=== PATIENT | female | born 1955 | race Caucasian/White ===

== ENCOUNTER 2018-11-08 02:58 | Observation (INO) ==
--- NOTE | 2018-11-08 03:22 | Emergency Department Note ---
Disposition Clinical Impression: Cough, Nausea, Elevated troponin Back pain Qualifiers: Back pain location: low back pain Chronicity: acute Back pain laterality: left Sciatica presence: without sciatica Qualified Code(s): M54.5 - Low back pain Chronic renal insufficiency Qualifiers: Chronic kidney disease stage: unspecified stage Qualified Code(s): N18.9 - Chronic kidney disease, unspecified Fever Qualifiers: Fever type: unspecified Qualified Code(s): R50.9 - Fever, unspecified Disposition: Admitted As Inpatient Condition: Good Referrals: [facility] [Outside] [facility] [Outside] Time of Disposition: 07:09 General Adult HPI - General Stated complaint: Nausea/Cough/MCDOWELL Time Seen by Provider: 11/08/18 03:04 Source: patient Mode of arrival: private vehicle Limitations: no limitations Nursing Notes Reviewed: Yes Vital Signs Reviewed: Yes - History of Present Illness HPI Narrative: 62-year-old female with a past medical history of pulmonary hypertension, diabetes who reports worsening cough, nausea, headache that started Thursday bhupendra borden. Patient states that she did not feel well so did not take her evening medications which include a Lantus shot. She states that when she woke up at 2 AM she felt very warm and so took her temperature and it was 104, she took it again 20 minutes later and it was 104.4 so she asked her to take her to the emergency department. Patient reports spending a lot of time in the ICU over the last week with her sister who is there for unknown reasons. Patient reports that her sister started with very similar complaints of cough headache and nausea and is now in a medically induced coma. Patient states she is not bringing anything up with her cough, but states that she is very bad habit of not bringing up anything with her cough. She reports some chest pain with coughing. States she was not really able to eat anything yesterday because of the nausea. Reports some leg weakness starting yesterday. And a headache that she states is posterior in nature. 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 She uses 3 L of oxygen by nasal cannula at home as her baseline. Pain Scale: 4 - Related Data Home Medications Medication Instructions Recorded Confirmed Albuterol Sulfate [Proair Hfa] 2 puff IH Q4H PRN 12/15/16 12/15/16 Amlodipine Besylate 5 mg PO DAILY 12/15/16 12/15/16 Aspirin [Lo-Dose Aspirin EC] 81 mg PO DAILY 12/15/16 12/15/16 Budesonide/Formoterol 160/4.5 2 puff IH BIDR 12/15/16 12/15/16 [Symbicort 160/4.5] Carvedilol [Coreg] 12.5 mg PO BID 12/15/16 12/15/16 Cyanocobalamin (Vitamin B-12) 100 mcg PO DAILY 12/15/16 12/15/16 [Vitamin B12] Doxepin HCl 100 mg PO DAILY 12/15/16 12/15/16 Ergocalciferol (VITAMIN D2) 50,000 unit PO QWEEK 12/15/16 12/15/16 [Vitamin D2] Furosemide [Lasix] 20 mg PO DAILY 12/15/16 12/15/16 HYDROcodone/Acet 10/325 mg [[place] 1 tab PO Q6HR PRN 12/15/16 12/15/16 10-325 mg] Insulin ASPART [Novolog Flexpen] 8 unit SQ TIDAC 12/15/16 12/15/16 Insulin Glargine,Hum.rec.anlog 14 unit SQ HS 12/15/16 12/15/16 [Lantus Solostar] Lactobacillus Acidophilus 1 each PO BID 12/15/16 12/15/16 [Acidophilus] Lisinopril [Zestril] 20 mg PO DAILY 12/15/16 12/15/16 Macitentan [Opsumit] 10 mg PO DAILY 12/15/16 12/15/16 Magnesium Oxide [Magnesium] 400 mg PO DAILY 12/15/16 12/15/16 [place]-3/Dha/Epa/Fish Oil [Fish Oil 1 each PO TID 12/15/16 12/15/16 1,000 mg Softgel] Omeprazole [PriLOSEC] 20 mg PO BIDAC 12/15/16 12/15/16 Potassium Chloride [K-Tab ER] 20 meq PO DAILY 12/15/16 12/15/16 Sildenafil Citrate [Revatio] 20 mg PO TID 12/15/16 12/15/16 Simvastatin [Zocor] 40 mg PO HS 12/15/16 12/15/16 Sucralfate [Carafate] 1 gm PO 0730,1630 12/15/16 12/15/16 Venlafaxine HCl [Venlafaxine HCl 150 mg PO DAILY 12/15/16 12/15/16 ER] clonazePAM [Clonazepam] 0.5 mg PO TID 12/15/16 12/15/16 Allergies Allergy/AdvReac Type Severity Reaction Status Date / Time Cyclobenzaprine Allergy Hallucinati Verified 12/15/16 06:52 [From Flexeril] ng promethazine [From Phenergan] Allergy Hallucinati Verified 12/15/16 06:52 ng Sulfa (Sulfonamide Allergy Rash Verified 12/15/16 06:52 Antibiotics) Tamoxifen Allergy See Verified 12/15/16 06:52 Comments Review of Systems: All systems ED: reviewed and negative except as stated. Constitutional: Reports: fever, chills ENT ED: Denies: ear pain, throat pain Reports: rhinorrhea Cardiovascular: Denies: palpitations Reports: chest pain with coughing Respiratory: Reports: cough, dyspnea Gastrointestinal: Denies: abdominal pain, vomiting, diarrhea, constipation R eports: nausea Genitourinary: Denies: urgency, dysuria, Reports: frequency Musculoskeletal: Denies: neck pain Reports: back pain Integumentary: Denies: rash, abrasion Neurological: Denies: weakness, numbness, paresthesias Reports: headache Psychiatric: Denies: anxiety, depression Endocrine: Denies: fatigue, heat or cold intolerance Hematological/Lymphatic: Denies: easy bleeding, easy bruising Allergic/Immunologic: Denies: facial swelling, urticaria Past Medical History - Past Medical History Medical history: Reports: asthma, cancer, cardiomyopathy, CHF, coronary artery disease, diabetes, fibromyalgia, hyperlipidemia, hypertension, renal disease Surgical history: Reports: cholecystectomy Psychiatric history: Reports: anxiety, depression - Social History Smoking Status: Never smoker Smokeless Tobacco Status: No Alcohol use: Reports: none Physical Exam General: A&O x 3. No acute distress. Well developed, well nourished. Head: atraumatic, normocephalic. ENT: No conjunctival injection, no scleral icterus. PERRLA. EOMI. Oropharynx no n- erythematous. mucous membranes moist. Neuro: No focal deficits, no speech deficit, no facial droop, mentating well. BUE/BLE Str 5/5. Pulm: Lungs CTAB A/P. No wheezes, rales, ronchi. Cardio: RRR no m/r/g. Chest not tender to palpation. Abd: Soft, non-distended. Normoactive bowel sounds. Non-tender to palpation. No guarding. Non rigid. Back: Tender to palpation in paraspinal tissues at L2-L3 on left. No CVA tenderness on either side. Extremities: Radial pulses 2+ mark, dorsalis pedis/posterior tibialis 1+ mark. No LE edema. No cyanosis, clubbing. Skin: warm, dry, intact. No rashes. Psych: Appropriate mood and affect. Answers questions appropriately. Cooperative with exam. - General Limitations: no limitations General appearance: alert, in no apparent distress Course Course Narrative: Ddx includes but is not limited to: PNA, ACS, DKA/HHS, Workup: CBC, BMP, troponin, beta-hydroxybutyrate, EKG, CXR, fingerstick glucose. Pt is denying needs at this time for anti-emetics/pain control. Vital Signs Temperature 98.9 F 11/08/18 03:02 Pulse Rate 102 11/08/18 03:02 Respiratory Rate 16 11/08/18 03:02 Blood Pressure 150/105 11/08/18 03:02 O2 Sat by Pulse Oximetry 94 11/08/18 03:02 Temperature 99.1 F 11/08/18 06:58 Pulse Rate 86 11/08/18 06:58 Respiratory Rate 20 11/08/18 06:58 Blood Pressure 145/99 11/08/18 06:58 O2 Sat by Pulse Oximetry 94 11/08/18 06:58 Oxygen Delivery Oxygen Delivery Nasal Cannula Medical Decision Making - MDM Narrative Medical decision making narrative: Pt was signed out to dayshift team, see Dr. Whiteside's notes for full results of workup and disposition. - Medical Records Medical records reviewed: Yes I reviewed the patient's medical records. - Lab Data Lab results reviewed: Yes I reviewed the patient's lab results. Result diagrams: 11/08/18 03:42 11/08/18 03:42 Lab Results 11/08/18 11/08/18 11/08/18 Range/Units 03:42 03:42 03:42 WBC 9.8 (4.3-11.1) K/mcL RBC 5.74 H (3.82-4.97) M/mcL Hgb 17.5 H (11.5-15.4) g/dL Hct 52.5 H (35.3-44.9) % MCV 91.5 (83.0-100.0) fL MCH 30.5 (28.0-33.3) pg MCHC 33.3 (31.6-35.5) g/dL RDW 14.3 (11.5-14.5) % Plt Count 168 (140-400) K/mcL MPV 12.6 H (9.4-12.4) fL Immature Gran % 0.4 (0-4) % Seg Neutrophils % 73.9 % Lymphocytes % 12.9 % Monocytes % 11.9 % Eosinophils % 0.3 % Basophils % 0.6 % Neutrophils # 7.2 (1.6-8.9) K/mcL Lymphocytes # 1.3 (0.6-4.6) K/mcL Monocytes # 1.2 (0.0-1.3) K/mcL Eosinophils # 0.0 (0.0-0.6) K/mcL Basophils # 0.1 (0.0-0.2) K/mcL Sodium 137 (136-145) mEq/L Potassium 3.2 L (3.5-5.1) mEq/L Chloride 98 (98-107) mEq/L Carbon Dioxide 25 (23-29) mEq/L BUN 26 H (8-23) mg/dL Creatinine 1.49 H (0.60-1.20) mg/dL Est GFR ( Amer) 43 L (> 60) Est GFR (Non-Af Amer) 35 L (> 60) BUN/Creatinine Ratio 17 (6-26) Glucose 178 H (70-105) mg/dL POC Glucose (70-99) mg/dL Calculated Osmolality 293 (280-300) Lactic Acid (0.5-2.2) mmol/L Calcium 10.0 (8.6-10.3) mg/dL Total Bilirubin 1.7 H (0.3-1.0) mg/dL Direct Bilirubin 0.3 H (0.0-0.2) mg/dL Indirect Bilirubin 1.4 H (0.0-1.2) mg/dL AST 28 (13-39) Units/L ALT 27 (7-52) Units/L Alkaline Phosphatase 125 H (34-104) Units/L Troponin I (< 0.04) ng/mL Serum Total Protein 8.3 (6.4-8.9) g/dL Albumin 4.7 (3.5-5.7) g/dL Globulin 3.6 H (2.4-3.5) g/dL Albumin/Globulin Ratio 1.3 (1.1-2.2) Beta-Hydroxybutyric Acd 0.54 H (0.02-0.27) mmol/L Urine Color (Yellow) Urine Clarity (Clear) Urine pH (5.0-8.0) pH Units Ur Specific [place] (1.010-1.025) Urine Protein (Neg-Trace) mg/dL Urine Glucose (UA) (Normal) mg/dL Urine Ketones (Negative) mg/dL Urine Blood (Negative) Urine Nitrite (Negative) Urine Bilirubin (Negative) Urine Urobilinogen (Normal) mg/dL Ur Leukocyte Esterase (Negative) Urine Microscopic RBC (0-3) per hpf Urine Microscopic WBC (0-3) per hpf Ur Squamous Epith Cells (None-Few) per lpf Urine Bacteria (None-Few) per hpf Ur Culture Indicated? (NO) 11/08/18 11/08/18 11/08/18 Range/Units 03:42 03:42 04:20 WBC (4.3-11.1) K/mcL RBC (3.82-4.97) M/mcL Hgb (11.5-15.4) g/dL Hct (35.3-44.9) % MCV (83.0-100.0) fL MCH (28.0-33.3) pg MCHC (31.6-35.5) g/dL RDW (11.5-14.5) % Plt Count (140-400) K/mcL MPV (9.4-12.4) fL Immature Gran % (0-4) % Seg Neutrophils % % Lymphocytes % % Monocytes % % Eosinophils % % Basophils % % Neutrophils # (1.6-8.9) K/mcL Lymphocytes # (0.6-4.6) K/mcL Monocytes # (0.0-1.3) K/mcL Eosinophils # (0.0-0.6) K/mcL Basophils # (0.0-0.2) K/mcL Sodium (136-145) mEq/L Potassium (3.5-5.1) mEq/L Chloride (98-107) mEq/L Carbon Dioxide (23-29) mEq/L BUN (8-23) mg/dL Creatinine (0.60-1.20) mg/dL Est GFR ( Amer) (> 60) Est GFR (Non-Af Amer) (> 60) BUN/Creatinine Ratio (6-26) Glucose (70-105) mg/dL POC Glucose 143 H (70-99) mg/dL Calculated Osmolality (280-300) Lactic Acid 1.5 (0.5-2.2) mmol/L Calcium (8.6-10.3) mg/dL Total Bilirubin (0.3-1.0) mg/dL Direct Bilirubin (0.0-0.2) mg/dL Indirect Bilirubin (0.0-1.2) mg/dL AST (13-39) Units/L ALT (7-52) Units/L Alkaline Phosphatase (34-104) Units/L Troponin I 0.04 H* (< 0.04) ng/mL Serum Total Protein (6.4-8.9) g/dL Albumin (3.5-5.7) g/dL Globulin (2.4-3.5) g/dL Albumin/Globulin Ratio (1.1-2.2) Beta-Hydroxybutyric Acd (0.02-0.27) mmol/L Urine Color (Yellow) Urine Clarity (Clear) Urine pH (5.0-8.0) pH Units Ur Specific [place] (1.010-1.025) Urine Protein (Neg-Trace) mg/dL Urine Glucose (UA) (Normal) mg/dL Urine Ketones (Negative) mg/dL Urine Blood (Negative) Urine Nitrite (Negative) Urine Bilirubin (Negative) Urine Urobilinogen (Normal) mg/dL Ur Leukocyte Esterase (Negative) Urine Microscopic RBC (0-3) per hpf Urine Microscopic WBC (0-3) per hpf Ur Squamous Epith Cells (None-Few) per lpf Urine Bacteria (None-Few) per hpf Ur Culture Indicated? (NO) 11/08/18 Range/Units 05:54 WBC (4.3-11.1) K/mcL RBC (3.82-4.97) M/mcL Hgb (11.5-15.4) g/dL Hct (35.3-44.9) % MCV (83.0-100.0) fL MCH (28.0-33.3) pg MCHC (31.6-35.5) g/dL RDW (11.5-14.5) % Plt Count (140-400) K/mcL MPV (9.4-12.4) fL Immature Gran % (0-4) % Seg Neutrophils % % Lymphocytes % % Monocytes % % Eosinophils % % Basophils % % Neutrophils # (1.6-8.9) K/mcL Lymphocytes # (0.6-4.6) K/mcL Monocytes # (0.0-1.3) K/mcL Eosinophils # (0.0-0.6) K/mcL Basophils # (0.0-0.2) K/mcL Sodium (136-145) mEq/L Potassium (3.5-5.1) mEq/L Chloride (98-107) mEq/L Carbon Dioxide (23-29) mEq/L BUN (8-23) mg/dL Creatinine (0.60-1.20) mg/dL Est GFR ( Amer) (> 60) Est GFR (Non-Af Amer) (> 60) BUN/Creatinine Ratio (6-26) Glucose (70-105) mg/dL POC Glucose (70-99) mg/dL Calculated Osmolality (280-300) Lactic Acid (0.5-2.2) mmol/L Calcium (8.6-10.3) mg/dL Total Bilirubin (0.3-1.0) mg/dL Direct Bilirubin (0.0-0.2) mg/dL Indirect Bilirubin (0.0-1.2) mg/dL AST (13-39) Units/L ALT (7-52) Units/L Alkaline Phosphatase (34-104) Units/L Troponin I (< 0.04) ng/mL Serum Total Protein (6.4-8.9) g/dL Albumin (3.5-5.7) g/dL Globulin (2.4-3.5) g/dL Albumin/Globulin Ratio (1.1-2.2) Beta-Hydroxybutyric Acd (0.02-0.27) mmol/L Urine Color Yellow (Yellow) Urine Clarity Cloudy A (Clear) Urine pH 5.5 (5.0-8.0) pH Units Ur Specific [place] 1.022 (1.010-1.025) Urine Protein >=300 H (Neg-Trace) mg/dL Urine Glucose (UA) Normal (Normal) mg/dL Urine Ketones Negative (Negative) mg/dL Urine Blood Negative (Negative) Urine Nitrite Negative (Negative) Urine Bilirubin Negative (Negative) Urine Urobilinogen Normal (Normal) mg/dL Ur Leukocyte Esterase Negative (Negative) Urine Microscopic RBC 0-3 (0-3) per hpf Urine Microscopic WBC 3-5 H (0-3) per hpf Ur Squamous Epith Cells Many H (None-Few) per lpf Urine Bacteria None Seen (None-Few) per hpf Ur Culture Indicated? NO (NO) - Radiology Data Radiology results reviewed: Yes I reviewed the patient's radiology results. Chest X-Ray 11/08/18 03:22 IMPRESSION: No acute cardiopulmonary process. D/ / Luis Enrique Duvall MD / Luis Enrique Duvall MD Interpreting Provider: Luis Enrique Duvall MD Abdomen/Pelvis CT 11/08/18 04:36 IMPRESSION: 1. Small pericardial effusion, slightly increased from prior exam. 2. No acute process in the abdomen or pelvis. 3. Status post cholecystectomy. 4. Moderate stool throughout the colon. D/ / Luis Enrique Duvall MD / Luis Enrique Duvall MD Interpreting Provider: Luis Enrique Duvall MD Chest CT 11/08/18 04:36 IMPRESSION: 1. Small pericardial effusion, slightly increased from prior exam. 2. No acute process in the abdomen or pelvis. 3. Status post cholecystectomy. 4. Moderate stool throughout the colon. D/ / Luis Enrique Duvall MD / Luis Enrique Duvall MD Interpreting Provider: Luis Enrique Duvall MD - EKG Data EKG #1 EKG attestation: Yes I reviewed and interpreted this EKG. EKG results narrative: Heart rate 96, rhythm sinus, axis right at 195. [place] 164, QRS 145 and prolonged, QTC [address] prolonged[address] 2mm isolated ST elevation in V2, 1mm ST elevation in V1, V3. No ST depression. LVH. When compared to previous study, morphology of aVR , I, II, III, aVL, V6 is different. Comparison study dated 09/05/16.
[2018-11-08 03:55] LABS: Basophils # 0.1 K/mcL (0.0-0.2); Basophils % 0.6 %; Eosinophils % 0.3 %; Hematocrit 52.5 % (35.3-44.9); Hemoglobin 17.5 g/dL (11.5-15.4); Immature Granulocytes % 0.4 % (0-4); Lymphocytes # 1.3 K/mcL (0.6-4.6); Lymphocytes % 12.9 %; Mean Corpuscular HGB Conc 33.3 g/dL (31.6-35.5); Mean Corpuscular Hemoglobin 30.5 pg (28.0-33.3); Mean Corpuscular Volume 91.5 fL (83.0-100.0); Mean Platelet Volume 12.6 fL (9.4-12.4); Monocytes # 1.2 K/mcL (0.0-1.3); Monocytes % 11.9 %; Neutrophils # 7.2 K/mcL (1.6-8.9); Platelet Count 168 K/mcL (140-400); Red Blood Count 5.74 M/mcL (3.82-4.97); Red Cell Distribution Width 14.3 % (11.5-14.5); Segmented Neutrophils % 73.9 %
[2018-11-08 04:14] LABS: Albumin 4.7 g/dL (3.5-5.7); Albumin/Globulin Ratio 1.3 (1.1-2.2); Bilirubin,Direct 0.3 mg/dL (0.0-0.2); Bilirubin,Indirect 1.4 mg/dL (0.0-1.2); Bilirubin,Total 1.7 mg/dL (0.3-1.0); Globulin 3.6 g/dL (2.4-3.5); Potassium 3.2 mEq/L (3.5-5.1); Total Protein 8.3 g/dL (6.4-8.9)
[2018-11-08] MEDS ORDERED: 0.9 % Sodium Chloride 500 ML IVC ONE (05:42)
--- NOTE | 2018-11-08 05:44 | Emergency Department Note ---
Disposition Clinical Impression: Cough, Nausea, Elevated troponin Back pain Qualifiers: Back pain location: low back pain Chronicity: acute Back pain laterality: left Sciatica presence: without sciatica Qualified Code(s): M54.5 - Low back pain Chronic renal insufficiency Qualifiers: Chronic kidney disease stage: unspecified stage Qualified Code(s): N18.9 - Chronic kidney disease, unspecified Fever Qualifiers: Fever type: unspecified Qualified Code(s): R50.9 - Fever, unspecified Disposition: Admitted As Inpatient Condition: Good Referrals: [place] [facility] [Outside] [facility] [Outside] General Adult HPI - General Chief complaint: ED General Medical Stated complaint: Nausea/Cough/MCDOWELL Time Seen by Provider: 11/08/18 03:04 Source: patient Mode of arrival: private vehicle Limitations: no limitations Nursing Notes Reviewed: Yes Vital Signs Reviewed: Yes - History of Present Illness Pain Scale: 4 - Related Data Home Medications Medication Instructions Recorded Confirmed Albuterol Sulfate [Proair Hfa] 2 puff IH Q4H PRN 12/15/16 12/15/16 Amlodipine Besylate 5 mg PO DAILY 12/15/16 12/15/16 Aspirin [Lo-Dose Aspirin EC] 81 mg PO DAILY 12/15/16 12/15/16 Budesonide/Formoterol 160/4.5 2 puff IH BIDR 12/15/16 12/15/16 [Symbicort 160/4.5] Carvedilol [Coreg] 12.5 mg PO BID 12/15/16 12/15/16 Cyanocobalamin (Vitamin B-12) 100 mcg PO DAILY 12/15/16 12/15/16 [Vitamin B12] Doxepin HCl 100 mg PO DAILY 12/15/16 12/15/16 Ergocalciferol (VITAMIN D2) 50,000 unit PO QWEEK 12/15/16 12/15/16 [Vitamin D2] Furosemide [Lasix] 20 mg PO DAILY 12/15/16 12/15/16 HYDROcodone/Acet 10/325 mg [[place] 1 tab PO Q6HR PRN 12/15/16 12/15/16 10-325 mg] Insulin ASPART [Novolog Flexpen] 8 unit SQ TIDAC 12/15/16 12/15/16 Insulin Glargine,Hum.rec.anlog 14 unit SQ HS 12/15/16 12/15/16 [Lantus Solostar] Lactobacillus Acidophilus 1 each PO BID 12/15/16 12/15/16 [Acidophilus] Lisinopril [Zestril] 20 mg PO DAILY 12/15/16 12/15/16 Macitentan [Opsumit] 10 mg PO DAILY 12/15/16 12/15/16 Magnesium Oxide [Magnesium] 400 mg PO DAILY 12/15/16 12/15/16 [place]-3/Dha/Epa/Fish Oil [Fish Oil 1 each PO TID 12/15/16 12/15/16 1,000 mg Softgel] Omeprazole [PriLOSEC] 20 mg PO BIDAC 12/15/16 12/15/16 Potassium Chloride [K-Tab ER] 20 meq PO DAILY 12/15/16 12/15/16 Sildenafil Citrate [Revatio] 20 mg PO TID 12/15/16 12/15/16 Simvastatin [Zocor] 40 mg PO HS 12/15/16 12/15/16 Sucralfate [Carafate] 1 gm PO 0730,1630 12/15/16 12/15/16 Venlafaxine HCl [Venlafaxine HCl 150 mg PO DAILY 12/15/16 12/15/16 ER] clonazePAM [Clonazepam] 0.5 mg PO TID 12/15/16 12/15/16 Allergies Allergy/AdvReac Type Severity Reaction Status Date / Time Cyclobenzaprine Allergy Hallucinati Verified 12/15/16 06:52 [From Flexeril] ng promethazine [From Phenergan] Allergy Hallucinati Verified 12/15/16 06:52 ng Sulfa (Sulfonamide Allergy Rash Verified 12/15/16 06:52 Antibiotics) Tamoxifen Allergy See Verified 12/15/16 06:52 Comments Past Medical History - Past Medical History Medical history: Reports: asthma, cancer, cardiomyopathy, CHF, coronary artery disease, diabetes, fibromyalgia, hyperlipidemia, hypertension, renal disease Surgical history: Reports: cholecystectomy Psychiatric history: Reports: anxiety, depression - Social History Smoking Status: Never smoker Smokeless Tobacco Status: No Alcohol use: Reports: none Physical Exam - General Limitations: no limitations General appearance: alert, in no apparent distress Course Vital Signs Temperature 98.9 F 11/08/18 03:02 Pulse Rate 102 11/08/18 03:02 Respiratory Rate 16 11/08/18 03:02 Blood Pressure 150/105 11/08/18 03:02 O2 Sat by Pulse Oximetry 94 11/08/18 03:02 Temperature 99.1 F 11/08/18 06:58 Pulse Rate 86 11/08/18 06:58 Respiratory Rate 20 11/08/18 06:58 Blood Pressure 145/99 11/08/18 06:58 O2 Sat by Pulse Oximetry 94 11/08/18 06:58 Oxygen Delivery Oxygen Delivery Nasal Cannula Medical Decision Making - Medical Records Medical records reviewed: Yes I reviewed the patient's medical records. - Lab Data Lab results reviewed: Yes I reviewed the patient's lab results. Result diagrams: 11/08/18 03:42 11/08/18 03:42 Lab Results 11/08/18 11/08/18 11/08/18 Range/Units 03:42 03:42 03:42 WBC 9.8 (4.3-11.1) K/mcL RBC 5.74 H (3.82-4.97) M/mcL Hgb 17.5 H (11.5-15.4) g/dL Hct 52.5 H (35.3-44.9) % MCV 91.5 (83.0-100.0) fL MCH 30.5 (28.0-33.3) pg MCHC 33.3 (31.6-35.5) g/dL RDW 14.3 (11.5-14.5) % Plt Count 168 (140-400) K/mcL MPV 12.6 H (9.4-12.4) fL Immature Gran % 0.4 (0-4) % Seg Neutrophils % 73.9 % Lymphocytes % 12.9 % Monocytes % 11.9 % Eosinophils % 0.3 % Basophils % 0.6 % Neutrophils # 7.2 (1.6-8.9) K/mcL Lymphocytes # 1.3 (0.6-4.6) K/mcL Monocytes # 1.2 (0.0-1.3) K/mcL Eosinophils # 0.0 (0.0-0.6) K/mcL Basophils # 0.1 (0.0-0.2) K/mcL Sodium 137 (136-145) mEq/L Potassium 3.2 L (3.5-5.1) mEq/L Chloride 98 (98-107) mEq/L Carbon Dioxide 25 (23-29) mEq/L BUN 26 H (8-23) mg/dL Creatinine 1.49 H (0.60-1.20) mg/dL Est GFR ( Amer) 43 L (> 60) Est GFR (Non-Af Amer) 35 L (> 60) BUN/Creatinine Ratio 17 (6-26) Glucose 178 H (70-105) mg/dL POC Glucose (70-99) mg/dL Calculated Osmolality 293 (280-300) Lactic Acid (0.5-2.2) mmol/L Calcium 10.0 (8.6-10.3) mg/dL Total Bilirubin 1.7 H (0.3-1.0) mg/dL Direct Bilirubin 0.3 H (0.0-0.2) mg/dL Indirect Bilirubin 1.4 H (0.0-1.2) mg/dL AST 28 (13-39) Units/L ALT 27 (7-52) Units/L Alkaline Phosphatase 125 H (34-104) Units/L Troponin I (< 0.04) ng/mL Serum Total Protein 8.3 (6.4-8.9) g/dL Albumin 4.7 (3.5-5.7) g/dL Globulin 3.6 H (2.4-3.5) g/dL Albumin/Globulin Ratio 1.3 (1.1-2.2) Beta-Hydroxybutyric Acd 0.54 H (0.02-0.27) mmol/L Urine Color (Yellow) Urine Clarity (Clear) Urine pH (5.0-8.0) pH Units Ur Specific [place] (1.010-1.025) Urine Protein (Neg-Trace) mg/dL Urine Glucose (UA) (Normal) mg/dL Urine Ketones (Negative) mg/dL Urine Blood (Negative) Urine Nitrite (Negative) Urine Bilirubin (Negative) Urine Urobilinogen (Normal) mg/dL Ur Leukocyte Esterase (Negative) Urine Microscopic RBC (0-3) per hpf Urine Microscopic WBC (0-3) per hpf Ur Squamous Epith Cells (None-Few) per lpf Urine Bacteria (None-Few) per hpf Ur Culture Indicated? (NO) 11/08/18 11/08/18 11/08/18 Range/Units 03:42 03:42 04:20 WBC (4.3-11.1) K/mcL RBC (3.82-4.97) M/mcL Hgb (11.5-15.4) g/dL Hct (35.3-44.9) % MCV (83.0-100.0) fL MCH (28.0-33.3) pg MCHC (31.6-35.5) g/dL RDW (11.5-14.5) % Plt Count (140-400) K/mcL MPV (9.4-12.4) fL Immature Gran % (0-4) % Seg Neutrophils % % Lymphocytes % % Monocytes % % Eosinophils % % Basophils % % Neutrophils # (1.6-8.9) K/mcL Lymphocytes # (0.6-4.6) K/mcL Monocytes # (0.0-1.3) K/mcL Eosinophils # (0.0-0.6) K/mcL Basophils # (0.0-0.2) K/mcL Sodium (136-145) mEq/L Potassium (3.5-5.1) mEq/L Chloride (98-107) mEq/L Carbon Dioxide (23-29) mEq/L BUN (8-23) mg/dL Creatinine (0.60-1.20) mg/dL Est GFR ( Amer) (> 60) Est GFR (Non-Af Amer) (> 60) BUN/Creatinine Ratio (6-26) Glucose (70-105) mg/dL POC Glucose 143 H (70-99) mg/dL Calculated Osmolality (280-300) Lactic Acid 1.5 (0.5-2.2) mmol/L Calcium (8.6-10.3) mg/dL Total Bilirubin (0.3-1.0) mg/dL Direct Bilirubin (0.0-0.2) mg/dL Indirect Bilirubin (0.0-1.2) mg/dL AST (13-39) Units/L ALT (7-52) Units/L Alkaline Phosphatase (34-104) Units/L Troponin I 0.04 H* (< 0.04) ng/mL Serum Total Protein (6.4-8.9) g/dL Albumin (3.5-5.7) g/dL Globulin (2.4-3.5) g/dL Albumin/Globulin Ratio (1.1-2.2) Beta-Hydroxybutyric Acd (0.02-0.27) mmol/L Urine Color (Yellow) Urine Clarity (Clear) Urine pH (5.0-8.0) pH Units Ur Specific [place] (1.010-1.025) Urine Protein (Neg-Trace) mg/dL Urine Glucose (UA) (Normal) mg/dL Urine Ketones (Negative) mg/dL Urine Blood (Negative) Urine Nitrite (Negative) Urine Bilirubin (Negative) Urine Urobilinogen (Normal) mg/dL Ur Leukocyte Esterase (Negative) Urine Microscopic RBC (0-3) per hpf Urine Microscopic WBC (0-3) per hpf Ur Squamous Epith Cells (None-Few) per lpf Urine Bacteria (None-Few) per hpf Ur Culture Indicated? (NO) 11/08/18 11/08/18 Range/Units 05:54 06:45 WBC (4.3-11.1) K/mcL RBC (3.82-4.97) M/mcL Hgb (11.5-15.4) g/dL Hct (35.3-44.9) % MCV (83.0-100.0) fL MCH (28.0-33.3) pg MCHC (31.6-35.5) g/dL RDW (11.5-14.5) % Plt Count (140-400) K/mcL MPV (9.4-12.4) fL Immature Gran % (0-4) % Seg Neutrophils % % Lymphocytes % % Monocytes % % Eosinophils % % Basophils % % Neutrophils # (1.6-8.9) K/mcL Lymphocytes # (0.6-4.6) K/mcL Monocytes # (0.0-1.3) K/mcL Eosinophils # (0.0-0.6) K/mcL Basophils # (0.0-0.2) K/mcL Sodium (136-145) mEq/L Potassium (3.5-5.1) mEq/L Chloride (98-107) mEq/L Carbon Dioxide (23-29) mEq/L BUN (8-23) mg/dL Creatinine (0.60-1.20) mg/dL Est GFR ( Amer) (> 60) Est GFR (Non-Af Amer) (> 60) BUN/Creatinine Ratio (6-26) Glucose (70-105) mg/dL POC Glucose (70-99) mg/dL Calculated Osmolality (280-300) Lactic Acid (0.5-2.2) mmol/L Calcium (8.6-10.3) mg/dL Total Bilirubin (0.3-1.0) mg/dL Direct Bilirubin (0.0-0.2) mg/dL Indirect Bilirubin (0.0-1.2) mg/dL AST (13-39) Units/L ALT (7-52) Units/L Alkaline Phosphatase (34-104) Units/L Troponin I 0.04 H* (< 0.04) ng/mL Serum Total Protein (6.4-8.9) g/dL Albumin (3.5-5.7) g/dL Globulin (2.4-3.5) g/dL Albumin/Globulin Ratio (1.1-2.2) Beta-Hydroxybutyric Acd (0.02-0.27) mmol/L Urine Color Yellow (Yellow) Urine Clarity Cloudy A (Clear) Urine pH 5.5 (5.0-8.0) pH Units Ur Specific [place] 1.022 (1.010-1.025) Urine Protein >=300 H (Neg-Trace) mg/dL Urine Glucose (UA) Normal (Normal) mg/dL Urine Ketones Negative (Negative) mg/dL Urine Blood Negative (Negative) Urine Nitrite Negative (Negative) Urine Bilirubin Negative (Negative) Urine Urobilinogen Normal (Normal) mg/dL Ur Leukocyte Esterase Negative (Negative) Urine Microscopic RBC 0-3 (0-3) per hpf Urine Microscopic WBC 3-5 H (0-3) per hpf Ur Squamous Epith Cells Many H (None-Few) per lpf Urine Bacteria None Seen (None-Few) per hpf Ur Culture Indicated? NO (NO) - Radiology Data Radiology results reviewed: Yes I reviewed the patient's radiology results. Chest X-Ray 11/08/18 03:22 IMPRESSION: No acute cardiopulmonary process. D/ / Luis Enrique Duvall MD / Luis Enrique Duvall MD Interpreting Provider: Luis Enrique Duvall MD Abdomen/Pelvis CT 11/08/18 04:36 IMPRESSION: 1. Small pericardial effusion, slightly increased from prior exam. 2. No acute process in the abdomen or pelvis. 3. Status post cholecystectomy. 4. Moderate stool throughout the colon. D/ / Luis Enrique Duvall MD / Luis Enrique Duvall MD Interpreting Provider: Luis Enrique Duvall MD Chest CT 11/08/18 04:36 IMPRESSION: 1. Small pericardial effusion, slightly increased from prior exam. 2. No acute process in the abdomen or pelvis. 3. Status post cholecystectomy. 4. Moderate stool throughout the colon. D/ / Luis Enrique Duvall MD / Luis Enrique Duvall MD Interpreting Provider: Luis Enrique Duvall MD - EKG Data EKG #1 EKG attestation: Yes I reviewed and interpreted this EKG. EKG results narrative: EKG shows normal sinus rhythm with ventricular rate of 96. Right atrial enlargement. LVH. Prolonged QT interval with QTC of 519. Mild ST elevation in V1, V2, and V3 which does not meet STEMI criteria and no reciprocal changes. Attestation Statement - Attestation Attestation: I, Дмитрий Hernandez MD, personally evaluated this patient and discussed their management with the resident physician. I reviewed the resident's note and agree with the documented findings, medical decision making, and plan of care. 62-year-old female with history of pulmonary hypertension on continuous home oxygen presents to the emergency department with a complaint of a nonproductive cough which started 3 or 4 days ago. She states the cough seems to come in spells but states when she gets to coughing she has trouble stopping and sometimes coughs for one or 2 hours. She denies any increased shortness of breath. She has had some mild burning mid chest pain only with coughing which she states feels like her bronchial tubes are irritated. Last evening she felt chilled and developed a fever up to 101.4 at home. She did not take anything for the fever. She states she did use a sponge baths which seem to help bring the fever down. She also complains of some pain in the back of her head which she states is not a headache but is more like pain in the scalp or the bones and hurts when she lies down and puts pressure on the back of her head. No neck pain. No sore throat or earache. She has had some sinus pain and congestion especially over the left maxillary sinus. She reports that she does have chronic ethmoid sinusitis. No abdominal pain. She does complain of nausea but no vomiting. No diarrhea. No melena, hematemesis, or hematochezia. Some increased urinary frequency but no dysuria or hematuria. No flank pain. On examination patient is a well-developed well-nourished female in no acute distress. She is alert and oriented 3. There is no cyanosis or diaphoresis. Right TM occluded by wax. Left TM is clear. There is some tenderness to palpation over the left maxillary sinus. Throat is clear with no injection or exudate and mucous membranes are moist. Airway is patent. Neck is supple and nontender with no lymphadenopathy and full range of motion. Touches chin to chest. Chest is nontender to palpation. Breath sounds are decreased but equal bilaterally. No rales or wheezes noted. Heart regular rate and rhythm. Abdomen soft and nontender with normal bowel sounds. No CVA tenderness. EKG shows normal sinus rhythm with ventricular rate of 96. Right atrial enlargement. LVH. Prolonged QT interval with QTC of 519. Mild ST elevation in V1, V2, and V3 which does not meet STEMI criteria and no reciprocal changes. Chest x-ray negative. CT of the chest abdomen pelvis showed no acute abnormality. No pneumonia. Labs reviewed. Chronic renal sufficiency at baseline for patient. Troponin 0.04 with no prior for comparison. The hospitalist was consulted and accepted admission of the patient to the medical service. I reviewed the residents documentation and agree with the residents assessment and plan of care. I have personally had face to face time with the patient. I personally supervised and was present for the sanders/critical portions of the following procedures completed by the resident: EKG interpretation.
[2018-11-08 06:04] LABS: Bilirubin,Urine Negative (Negative); Blood,Urine Negative (Negative); Clarity,Urine Cloudy (Clear); Color,Urine Yellow (Yellow); Glucose,Urine (UA) Normal (Normal); Ketones,Urine Negative (Negative); Leukocyte Esterase,Urine Negative (Negative); Nitrite,Urine Negative (Negative); PH,Urine 5.5 pH Units (5.0-8.0); Protein,Urine >=300 mg/dL (Neg-Trace); Specific Gravity,Urine 1.022 (1.010-1.025); Urobilinogen,Urine Normal (Normal)
[2018-11-08 06:05] LABS: Bacteria,Urine None Seen per hpf (None-Few); RBC,Urine 0-3 per hpf (0-3); Squamous Epithelial Cell,Urine Many per lpf (None-Few)
[2018-11-08] MEDS ORDERED: Naloxone 0.4 MG/ML INJ IVP PRN (07:29)
[2018-11-08] MEDS ORDERED: Dextrose Gel 15 GM/37.5 ML TUBE PO PRN ×2 (07:37)
[2018-11-08] MEDS ORDERED: D5% in Water 1,000 ML IVC PRN (07:37)
[2018-11-08] MEDS ORDERED: *HR* Dextrose 50 % in Water (Syg) 50 ML SYRINGE IVP PRN (07:37)
--- NOTE | 2018-11-08 08:24 | Internal Med History&Physical ---
Date of Encounter: 11/08/18 Time of Encounter: 08:20 Internal Medicine - H&P: HPI Chief complaint: Coughing, fevers and chills of 5 days duration History of present illness: Ms. Rogel is a 62 year old female with pmh of CAD, diabetes, hypertension, pulmonary hypertension, diastolic CHF presenting with complaints of coguhing , fevers, chills and generalized malaise since thursday. Patient says she has a sister who is in the ICU here for septick shock and she has been spending a lot of time in the ICU lately. About a week ago, she says her kidney doctor doubled her dose of lasix because of a small pericardial effusion that was seen on her 2D echo. Since last week thursday, she has been having spells of intermittent fevers and a sustained non productive cough. She reports her sister had similar symptoms before ending up in the ICU. She has been having a worsening fatigue in this time and a loss of appetite. She denies any chest pain, nausea, vomiting or diarrhea. She woke up this morning feeling warm and noted her temperature was 101 and that's why she came to the ER. In the ER, she was given IV fluids and is being admitted for further management Past Med Surg Social Fam HX - Past Medical History Medical history: asthma, cancer, cardiomyopathy, CHF, coronary artery disease, diabetes, fibromyalgia, hyperlipidemia, hypertension, renal disease Additional medical history: TRICUSPID REGURGITATION. REITERS SYNDROME. HOME O2. SLEEP APNEA. PULMONARY HTN Psychiatric history: anxiety, depression - Past Surgical History Surgical History: cholecystectomy Additional surgical history: LEFT MASTECTOMY. TUBAL LIGATION. PTCA - Social History Smoking Status: Never smoker Smokeless Tobacco Status: No Alcohol use: none Internal Medicine - H&P: Meds Albuterol Sulfate [Proair Hfa] 2 puff IH Q4H PRN 12/15/16 [History] Aspirin [Lo-Dose Aspirin EC] 81 mg PO DAILY 12/15/16 [History] Budesonide/Formoterol 160/4.5 [Symbicort 160/4.5] 2 puff IH BIDR 12/15/16 [History] Doxepin HCl 100 mg PO DAILY 12/15/16 [History] Ergocalciferol (VITAMIN D2) [Vitamin D2] 50,000 unit PO FR 12/15/16 [History] Furosemide [Lasix] 40 mg PO DAILY 12/15/16 [History] HYDROcodone/Acet 10/325 mg [[place] 10-325 mg] 1 tab PO TID PRN 12/15/16 [History] Insulin ASPART [Novolog Flexpen] 6 - 25 unit SQ TIDAC 12/15/16 [History] Insulin Glargine,Hum.rec.anlog [Lantus Solostar] 10 - 14 unit SQ HS 12/15/16 [History] Magnesium Oxide [Magnesium] 400 mg PO DAILY 12/15/16 [History] [place]-3/Dha/Epa/Fish Oil [Fish Oil 1,000 mg Softgel] 1 cap PO DAILY 12/15/16 [History] Sildenafil Citrate [Revatio] 20 mg PO TID 12/15/16 [History] Venlafaxine HCl [Venlafaxine HCl ER] 150 mg PO DAILY 12/15/16 [History] Atorvastatin [Lipitor] 40 mg PO HS 11/08/18 [History] Carvedilol 12.5 mg PO BID 11/08/18 [History] Furosemide [Lasix] 20 mg PO HS 11/08/18 [History] Lisinopril [Zestril] 40 mg PO DAILY 11/08/18 [History] Potassium Chloride [Klor-Con 10] 10 meq PO BID 11/08/18 [History] Ranitidine HCl [Zantac] 300 mg PO DAILY 11/08/18 [History] cloNIDine HCl [CloNIDine HCl] 0.1 mg PO PRN PRN 11/08/18 [History] Allergy/AdvReac Type Severity Reaction Status Date / Time Sulfa (Sulfonamide Allergy Rash Verified 11/08/18 08:53 Antibiotics) Cyclobenzaprine AdvReac Hallucinati Verified 11/08/18 08:53 [From Flexeril] ng promethazine [From Phenergan] AdvReac Hallucinati Verified 11/08/18 08:53 ng Tamoxifen AdvReac See Verified 11/08/18 08:53 Comments All Systems PM: A 10-system review of systems was performed and is negative for pertinent findings except as documented above in the HPI. - Constitutional Constitutional: fever(s), malaise, no chills, no night sweats - EENT Eyes: no change in vision, no discharge, no pain, no photophobia Ears: no ear discharge, no ear pain, no tinnitus Nose, mouth and throat: no dysphagia, no nasal discharge, no neck pain, no sore throat - Cardiovascular Cardiovascular ROS IM: no chest pain, no diaphoresis, no dyspnea, no lightheadedness, no palpitations, no syncope - Respiratory Respiratory: cough, no dyspnea, no wheezing, no excessive phlegm production - Gastrointestinal Gastrointestinal: no abdominal pain, no diarrhea, no hematemesis, no hematochezia, no melena, no nausea, no vomiting - Genitourinary Genitourinary: no change in urinary stream, no dysuria, no flank pain, no hematuria - Musculoskeletal Musculoskeletal ROS IM: no numbness, no tingling - Integumentary Integumentary IM: no rash, no unusual bruising - Neurological Neurological ROS: no confusion, no convulsions, no focal weakness, no numbness, no tingling, no tremor(s) - Hematologic/Lymphatic Hematologic/Lymphatic: no easy bruising - Constitutional Vitals: Temp Pulse Resp BP Pulse Ox 99.1 F 86 20 145/99 94 11/08/18 06:58 11/08/18 06:58 11/08/18 06:58 11/08/18 06:58 11/08/18 06:58 Exam: NAD. Appears dehydrated - Head Head exam: Present: atraumatic, normocephalic - Eye Eye exam: Present: PERRL, conjuntiva pink, sclera anicteric Pupils: Present: PERRL - Neck Neck exam general surgery: Present: supple, trachea midline. Absent: lymphadenopathy - Respiratory Respiratory exam: Present: CTAB. Absent: accessory muscle use, rales, rhonchi, wheezes - Cardiovascular Cardiovascular exam: Present: RRR, +S1, +S2. Absent: diastolic murmur, gallop, rubs, systolic murmur - GI/Abdominal GI/Abdominal exam: Present: normal bowel sounds, soft, no peritoneal signs. Absent: distended, tenderness - Extremities Exam Extremities exam: Present: warm, radial pulses palpable and symmetrical. Absent: calf tenderness, cyanotic, pedal edema - Neurological Exam Neurological exam: Present: CN II-XII intact, oriented X3, no focal deficits. Absent: pronater drift, facial droop, speech deficit - Skin Skin exam: Present: dry, intact Internal Med - H&P Results - Labs CBC & Chem 7: 11/08/18 03:42 11/08/18 03:42 Labs: Short CBC 11/08/18 Range/Units 03:42 WBC 9.8 (4.3-11.1) K/mcL Hgb 17.5 H (11.5-15.4) g/dL Hct 52.5 H (35.3-44.9) % Plt Count 168 (140-400) K/mcL Neutrophils # 7.2 (1.6-8.9) K/mcL BMP 11/08/18 03:42 Sodium 137 Potassium 3.2 L Chloride 98 Carbon Dioxide 25 BUN 26 H Creatinine 1.49 H Glucose 178 H Calcium 10.0 Cardiac Enzymes 11/08/18 11/08/18 Range/Units 03:42 06:45 Troponin I 0.04 H* 0.04 H* (< 0.04) ng/mL Liver Function 11/08/18 Range/Units 03:42 Total Bilirubin 1.7 H (0.3-1.0) mg/dL Direct Bilirubin 0.3 H (0.0-0.2) mg/dL AST 28 (13-39) Units/L ALT 27 (7-52) Units/L Alkaline Phosphatase 125 H (34-104) Units/L Albumin 4.7 (3.5-5.7) g/dL Urine 11/08/18 Range/Units 05:54 Urine Color Yellow (Yellow) Urine Clarity Cloudy A (Clear) Urine pH 5.5 (5.0-8.0) pH Units Ur Specific [place] 1.022 (1.010-1.025) Urine Protein >=300 H (Neg-Trace) mg/dL Urine Glucose (UA) Normal (Normal) mg/dL - Impressions ITS Impressions Chest X-Ray 11/08/18 03:22 IMPRESSION: No acute cardiopulmonary process. D/ / Luis Enrique Duvall MD / Luis Enrique Duvall MD Interpreting Provider: Luis Enrique Duvall MD Abdomen/Pelvis CT 11/08/18 04:36 IMPRESSION: 1. Small pericardial effusion, slightly increased from prior exam. 2. No acute process in the abdomen or pelvis. 3. Status post cholecystectomy. 4. Moderate stool throughout the colon. D/ / 11/08/2018 07:35:06 Luis Enrique Duvall MD / rebel Interpreting Provider: Luis Enrique Duvall MD Chest CT 11/08/18 04:36 IMPRESSION: 1. Small pericardial effusion, slightly increased from prior exam. 2. No acute process in the abdomen or pelvis. 3. Status post cholecystectomy. 4. Moderate stool throughout the colon. D/ / 11/08/2018 07:35:06 Lius Enrique Duvall MD / rebel Interpreting Provider: Luis Enrique Duvall MD - Assessment and Plan (1) Pneumonia Current Visit: Yes Status: Acute Assessment and plan: Pt has been experiencing coughing and intermittent fevers since thursday of unclear source. Appears toxic looking, has been spending time visiting family in the hospital CXR shows no clear infiltrate but patient is dehdyrated. Will start on IV fluids, obtain blood cultures,viral respiratory panel and urine strep and legionella antigen Start empirically on ceftriaxone and azithromycin. Rehydrate and repeat cxr which may show infiltrate on hydration If patient continues to have fever spikes, small pericardial effusion may be an alternate source of infection, however patient denies any chest pain. Will obtain esr, crp Qualifiers: Qualified Code(s): J18.9 - Pneumonia, unspecified organism (2) Chronic renal insufficiency Current Visit: Yes Status: Acute Assessment and plan: Has CKD stage 3. Appears to be at baseline. Will hydrate gently as she has been taking double doses of lasix Qualifiers: Chronic kidney disease stage: stage 3 (moderate) Qualified Code(s): N18.3 - Chronic kidney disease, stage 3 (moderate) (3) Elevated troponin Current Visit: Yes Status: Acute Assessment and plan: Likely secondary to demand ischemia. No acute intervention (4) Diabetes mellitus Current Visit: Yes Status: Acute Assessment and plan: Continue insulin and monitor fingersticks Qualifiers: Qualified Code(s): E11.9 - Type 2 diabetes mellitus without complications (5) Chronic diastolic (congestive) heart failure Current Visit: Yes Status: Acute Assessment and plan: No acute exacebration. gentle Iv fluid hydration (6) Pericardial effusion Current Visit: Yes Status: Acute Assessment and plan: Appears small and chronic. Noted on echo in October.No evidence of tamponade. No acute intervention (7) DVT prophylaxis Current Visit: Yes Status: Acute Assessment and plan: heparin sc - Time Spent With Patient Total time spent is greater than 50% in coordination of care (as documented) at patient's floor/unit and/or counseling patient:
[2018-11-08 08:48] LABS: Estimated Average Glucose 171 mg/dl; Hemoglobin A1C 7.6 %
[2018-11-08] MEDS: 0.9 % Sodium Chloride 1,000 ML IVC SCH ×3 (12:03→23:17)
[2018-11-08] MEDS: cefTRIAXone 1,000 MG in Water for inj. (sterile) 20 ML 10 ML IVP SCH (12:04)
[2018-11-08] MEDS: Azithromycin 500 MG in D5% in Water 250 ML IVPB SCH (12:07)
[2018-11-08] MEDS: GuaiFENesin Liq 200 MG/10 ML UDC PO SCH ×3 (12:12→16:29)
[2018-11-08] MEDS: Insulin LISPRO 300 UNITS/3 ML VIAL SQ SCH ×2 (12:13→16:04)
[2018-11-08] MEDS: Potassium Chloride Elixir 20 MEQ/15 ML UDC PO SCH ×2 (13:59→14:47)
[2018-11-08 14:24] LABS: Adenovirus Not Detected (Not Detect); Bordetella Pertussis Not Detected (Not Detect); Chlamydophila pneumoniae Not Detected (Not Detect); Coronavirus 229E Not Detected (Not Detect); Coronavirus HKU1 Not Detected (Not Detect); Coronavirus NL63 Not Detected (Not Detect); Coronavirus OC43 Not Detected (Not Detect); Human Metapneumovirus Not Detected (Not Detect); Human Rhinovirus/Enterovirus Not Detected (Not Detect); Influenza A Subtype 2009 H1 Not Detected (Not Detect); Influenza A Untypeable Not Detected (Not Detect); Influenza B Not Detected (Not Detect); Mycoplasma pneumoniae Not Detected (Not Detect); Parainfluenza Virus 1 Not Detected (Not Detect); Parainfluenza Virus 2 Not Detected (Not Detect); Parainfluenza Virus 3 DETECTED (Not Detect); Parainfluenza Virus 4 Not Detected (Not Detect); Respiratory Syncytial Virus Not Detected (Not Detect)
[2018-11-08] MEDS: Sildenafil Citrate 20 MG TABLET PO SCH ×3 (14:46→23:26)
[2018-11-08] MEDS: Lisinopril 20 MG TABLET PO SCH (14:46)
[2018-11-08] MEDS: Aspirin Enteric Coated 81 MG Tablet PO SCH (14:46)
[2018-11-08] MEDS: *HR* Heparin 5,000 UNIT/ML VIAL SQ SCH (17:16)
[2018-11-08] MEDS: *HR* HYDROcodone/Acet 7.5/325 mg TABLET PO PRN (23:25)
[2018-11-08] MEDS: Insulin DETEMIR 100 UNIT/ML X5UNITS SQ SCH (23:26)
[2018-11-08] MEDS: Venlafaxine XR (24 HR) 150 MG CAP.ER.24H PO SCH (23:39)
[2018-11-09 01:43] LABS: Basophils % 0.4 %; Eosinophils % 0.4 %; Hematocrit 47.4 % (35.3-44.9); Immature Granulocytes % 0.3 % (0-4); Lymphocytes # 1.2 K/mcL (0.6-4.6); Lymphocytes % 17.7 %; Mean Corpuscular HGB Conc 32.9 g/dL (31.6-35.5); Mean Corpuscular Hemoglobin 30.7 pg (28.0-33.3); Mean Corpuscular Volume 93.3 fL (83.0-100.0); Mean Platelet Volume 12.3 fL (9.4-12.4); Monocytes % 14.5 %; Neutrophils # 4.6 K/mcL (1.6-8.9); Platelet Count 128 K/mcL (140-400); Red Blood Count 5.08 M/mcL (3.82-4.97); Red Cell Distribution Width 14.4 % (11.5-14.5); Segmented Neutrophils % 66.7 %
[2018-11-09 01:48] LABS: Hemoglobin 15.6 g/dL (11.5-15.4)
[2018-11-09 02:02] LABS: BUN/Creatinine Ratio 24 (6-26); Blood Urea Nitrogen 25 mg/dL (8-23); Calcium 8.7 mg/dL (8.6-10.3); Carbon Dioxide 21 mEq/L (23-29); Chloride 102 mEq/L (98-107); Glucose 142 mg/dL (70-105); Magnesium 1.8 mg/dL (1.6-2.6); Osmolality,Calculated 291 (280-300); Phosphorous 2.3 mg/dL (2.7-4.5); Potassium 3.3 mEq/L (3.5-5.1); Sodium 137 mEq/L (136-145); eGFR For Non-African Americans 54 (> 60)
[2018-11-09] MEDS: *HR* Heparin 5,000 UNIT/ML VIAL SQ SCH ×2 (06:48→17:45)
[2018-11-09] MEDS: Insulin LISPRO 300 UNITS/3 ML VIAL SQ SCH ×3 (08:33→17:08)
--- NOTE | 2018-11-09 09:05 | Internal Med Progress Note ---
Hospitalist Progress Note - Encounter Date of Encounter: 11/09/18 Time of Encounter: 11:20 - Subjective Interval History: awake, feeling fatigued, no orhtopnea, pnd, sob on o2 nc. denies wheezing, + cough with sputum but has not spit it out to see color. no fevers or chills. no chest pain - Exam Vitals: Temp Pulse Resp BP Pulse Ox 98.3 F 89 18 153/101 95 11/09/18 07:45 11/09/18 07:45 11/09/18 07:45 11/09/18 07:45 11/09/18 07:45 Exam: gen- alert, awake,appears stated age eyes- pupils equal round cv- reg rate and rhythm, normal s1,s2, no murmurs appreciated, no le edema lungs- ctabl, no wheezing, rhonchi or crackles, normal resp effort o2 nc abd- soft, non tender, non distended, + bs neuro- AAOx3 - Assessment and Plan (1) Pneumonia Current Visit: Yes Status: Acute Assessment and Plan: + parainfluenza CXR wthout consolidation thoug suspected pna, organism uk given dehydration she was given fluids and will have cxr repeated CT chest reviewed -cont empiric rocephin + azithro -cxr 2V in am -this all may be parainfluenza virus, may consider stopping abx after cxr (2) Elevated troponin Current Visit: Yes Status: Acute Assessment and Plan: adynamic, trop 0.04 x5 without acute ischemic changes on ekg cont tele, monitor for sxs echo reviewed likely demand in setting of infectious process (3) Chronic renal insufficiency Current Visit: Yes Status: Acute Assessment and Plan: Has CKD stage 3. Appears to be at baseline. had been on double her dose of home lasix, now held, gentle ivfs were given for dehydration (4) Diabetes mellitus Current Visit: Yes Status: Acute Assessment and Plan: cont basal + SSI and accu checks, adjust as needed (5) DVT prophylaxis Current Visit: Yes Status: Acute Assessment and Plan: heparin sc (6) Chronic diastolic (congestive) heart failure Current Visit: Yes Status: Acute Assessment and Plan: stable holding kumar elasix echo reviewed (7) Pericardial effusion Current Visit: Yes Status: Acute Assessment and Plan: CT chest showed slight increase from prior this is a known diagnosis repeated echo and small effusion, no tamponade, RV volume overload cont to monitor, fu with outpt providers - Time Spent with Patient Total time spent is greater than 50% in coordination of care (as documented) at patient's floor/unit and/or counseling patient: Plan of Care Discussed with: patient Internal Medicine: Result - Labs CBC & Chem 7: 11/09/18 01:08 11/09/18 01:08 Labs: Short CBC 11/09/18 Range/Units 01:08 WBC 6.9 (4.3-11.1) K/mcL Hgb 15.6 H D (11.5-15.4) g/dL Hct 47.4 H (35.3-44.9) % Plt Count 128 L (140-400) K/mcL Neutrophils # 4.6 (1.6-8.9) K/mcL BMP 11/08/18 11/09/18 03:42 01:08 Sodium 137 137 Potassium 3.2 L 3.3 L Chloride 98 102 Carbon Dioxide 25 21 L BUN 26 H 25 H Creatinine 1.49 H 1.03 Glucose 178 H 142 H Calcium 10.0 8.7 Cardiac Enzymes 11/08/18 11/08/18 11/09/18 Range/Units 12:22 18:23 01:08 Troponin I 0.04 H* 0.04 H* 0.04 H* (< 0.04) ng/mL Liver Function 11/08/18 Range/Units 03:42 Total Bilirubin 1.7 H (0.3-1.0) mg/dL Direct Bilirubin 0.3 H (0.0-0.2) mg/dL AST 28 (13-39) Units/L ALT 27 (7-52) Units/L Alkaline Phosphatase 125 H (34-104) Units/L Albumin 4.7 (3.5-5.7) g/dL Consult Discharge Plan - Plan Referrals: Duane Novak MD [Primary Care Provider] - (1) Pneumonia Qualifiers: Qualified Code(s): J18.9 - Pneumonia, unspecified organism (3) Chronic renal insufficiency Qualifiers: Chronic kidney disease stage: stage 3 (moderate) Qualified Code(s): N18.3 - Chronic kidney disease, stage 3 (moderate) (4) Diabetes mellitus Qualifiers: Diabetes mellitus type: type 2 Diabetes mellitus prison insulin use: with prison use Diabetes mellitus complication status: with unspecified complications Qualified Code(s): E11.8 - Type 2 diabetes mellitus with unspecified complications; Z79.4 - adjunct faculty for medical terminology (current) use of insulin
[2018-11-09] MEDS: 0.9 % Sodium Chloride 1,000 ML IVC SCH (09:33)
[2018-11-09] MEDS: Lisinopril 20 MG TABLET PO SCH (09:34)
[2018-11-09] MEDS: Sildenafil Citrate 20 MG TABLET PO SCH ×3 (09:34→20:07)
[2018-11-09] MEDS: Aspirin Enteric Coated 81 MG Tablet PO SCH (09:34)
[2018-11-09] MEDS: Venlafaxine XR (24 HR) 150 MG CAP.ER.24H PO SCH (09:34)
[2018-11-09] MEDS: cefTRIAXone 1,000 MG in Water for inj. (sterile) 20 ML 10 ML IVP SCH (09:35)
[2018-11-09] MEDS: Azithromycin 500 MG in D5% in Water 250 ML IVPB SCH (09:35)
[2018-11-09] MEDS ORDERED: 0.9 % Sodium Chloride 1,000 ML IVC SCH (11:19)
[2018-11-09] MEDS: *HR* HYDROcodone/Acet 7.5/325 mg TABLET PO PRN ×2 (14:07→22:21)
[2018-11-09] MEDS: Insulin DETEMIR 100 UNIT/ML X5UNITS SQ SCH (20:44)
[2018-11-10] MEDS: *HR* Heparin 5,000 UNIT/ML VIAL SQ SCH (05:36)
[2018-11-10 06:03] LABS: Basophils % 0.5 %; Eosinophils # 0.2 K/mcL (0.0-0.6); Hematocrit 49.2 % (35.3-44.9); Hemoglobin 15.8 g/dL (11.5-15.4); Immature Granulocytes % 0.3 % (0-4); Lymphocytes # 1.9 K/mcL (0.6-4.6); Lymphocytes % 31.3 %; Mean Corpuscular HGB Conc 32.1 g/dL (31.6-35.5); Mean Corpuscular Hemoglobin 30.4 pg (28.0-33.3); Mean Corpuscular Volume 94.8 fL (83.0-100.0); Mean Platelet Volume 12.2 fL (9.4-12.4); Monocytes # 0.7 K/mcL (0.0-1.3); Monocytes % 12.1 %; Neutrophils # 3.2 K/mcL (1.6-8.9); Platelet Count 122 K/mcL (140-400); Red Blood Count 5.19 M/mcL (3.82-4.97); Red Cell Distribution Width 14.6 % (11.5-14.5); Segmented Neutrophils % 52.8 %
[2018-11-10 06:14] LABS: Calcium 9.3 mg/dL (8.6-10.3); Magnesium 1.8 mg/dL (1.6-2.6); Potassium 3.6 mEq/L (3.5-5.1)
[2018-11-10] MEDS: Insulin LISPRO 300 UNITS/3 ML VIAL SQ SCH (09:45)
[2018-11-10] MEDS: cefTRIAXone 1,000 MG in Water for inj. (sterile) 20 ML 10 ML IVP SCH (10:08)
[2018-11-10] MEDS: Azithromycin 500 MG in D5% in Water 250 ML IVPB SCH (10:09)
[2018-11-10] MEDS: Aspirin Enteric Coated 81 MG Tablet PO SCH (10:10)
[2018-11-10] MEDS: Sildenafil Citrate 20 MG TABLET PO SCH (10:11)
[2018-11-10] MEDS: Venlafaxine XR (24 HR) 150 MG CAP.ER.24H PO SCH (10:11)
[2018-11-10] MEDS: Lisinopril 20 MG TABLET PO SCH (10:11)
[2018-11-10] MEDS: *HR* HYDROcodone/Acet 7.5/325 mg TABLET PO PRN (10:41)
--- NOTE | 2018-11-10 11:12 | Internal Med Progress Note ---
Hospitalist Progress Note - Encounter Date of Encounter: 11/10/18 Time of Encounter: 11:12 - Exam Vitals: Temp Pulse Resp BP Pulse Ox 98.7 F 90 17 159/103 99 11/10/18 06:53 11/10/18 06:53 11/10/18 06:53 11/10/18 06:53 11/10/18 06:53 - Assessment and Plan (1) Elevated troponin Current Visit: Yes Status: Acute (2) Chronic renal insufficiency Current Visit: Yes Status: Acute (3) Pneumonia Current Visit: Yes Status: Acute (4) Diabetes mellitus Current Visit: Yes Status: Acute (5) DVT prophylaxis Current Visit: Yes Status: Acute (6) Chronic diastolic (congestive) heart failure Current Visit: Yes Status: Acute (7) Pericardial effusion Current Visit: Yes Status: Acute - Time Spent with Patient Total time spent is greater than 50% in coordination of care (as documented) at patient's floor/unit and/or counseling patient: Internal Medicine: Result - Labs CBC & Chem 7: 11/10/18 05:45 11/10/18 05:45 Labs: Short CBC 11/10/18 Range/Units 05:45 WBC 6.0 (4.3-11.1) K/mcL Hgb 15.8 H (11.5-15.4) g/dL Hct 49.2 H (35.3-44.9) % Plt Count 122 L (140-400) K/mcL Neutrophils # 3.2 (1.6-8.9) K/mcL BMP 11/10/18 05:45 Sodium 141 Potassium 3.6 Chloride 105 Carbon Dioxide 24 BUN 29 H Creatinine 1.34 H Glucose 85 Calcium 9.3 - Impressions Impressions Chest X-Ray 11/10/18 06:00 IMPRESSION: No acute abnormality. D/ / Mk Colin MD / Mk Colin MD Interpreting Provider: Mk Colin MD Consult Discharge Plan - Plan Referrals: Duane Novak MD [Primary Care Provider] - ___ (2) Chronic renal insufficiency Qualifiers: Chronic kidney disease stage: stage 3 (moderate) Qualified Code(s): N18.3 - Chronic kidney disease, stage 3 (moderate) (3) Pneumonia Qualifiers: Qualified Code(s): J18.9 - Pneumonia, unspecified organism (4) Diabetes mellitus Qualifiers: Diabetes mellitus type: type 2 Diabetes mellitus long-term insulin use: with supervisor [employer] use Diabetes mellitus complication status: with unspecified complications Qualified Code(s): E11.8 - Type 2 diabetes mellitus with unspecified complications; Z79.4 - printer's devil (current) use of insulin
[2018-11-10 11:14] VITALS: BP 146/92
--- NOTE | 2018-11-10 11:41 | Discharge Summary ---
- NOTES TO OUTPATIENT PROVIDER Notes to Outpatient Provider: Patient to follow-up with pulmonology and cardiology as outpatient in 1-2 weeks. Consider stopping when necessary clonidine given patient on venlafaxine. Orders not resulted at time of discharge: Pending orders 11/08/18 03:22 ECG 12 lead ECG [ECG] Stat 11/08/18 03:51 Culture,Blood [BC] Stat Date of Encounter: 11/10/18 Time of Encounter: 11:43 - Discharge Diagnosis (1) Elevated troponin Priority: Primary Status: Acute (2) Chronic renal insufficiency Priority: Secondary Status: Acute Qualifiers: Chronic kidney disease stage: stage 3 (moderate) Qualified Code(s): N18.3 - Chronic kidney disease, stage 3 (moderate) (3) Diabetes mellitus Priority: Secondary Status: Acute Qualifiers: Diabetes mellitus type: type 2 Diabetes mellitus custodial insulin use: with custodial use Diabetes mellitus complication status: with unspecified complications Qualified Code(s): E11.8 - Type 2 diabetes mellitus with unspecified complications; Z79.4 - intermediate (current) use of insulin (4) DVT prophylaxis Priority: Secondary Status: Acute (5) Chronic diastolic (congestive) heart failure Priority: Secondary Status: Acute (6) Pericardial effusion Priority: Secondary Status: Acute Hospital course: Ms. Rogel is a 62 year old female past medical history of diabetes, diastolic CHF, CAD, pulmonary hypertension, sleep apnea, hypertension came in with complaint of cough and fevers and chills and malaise. Patient initially started on empiric antibiotics for pneumonia. Vision was found to have mild pericardial effusion which was seen before. Patient had repeat echocardiogram which did show a right RV hypokinesis and RV dilation with small pericardial effusion minimally increased compared to before. No signs of cardiac tamponade. patient was hemodynamically stable. Patient respiratory infectious panel came positive for paraInfluenza. Patient did have some elevated troponin which remained flat and would like to get irritated due to demand ischemia in the sett ing of CKD. Patient's imaging did not show any consult processes. Patient was given some IV fluids given acute viral respiratory infection. Patient was otherwise stable to be discharged home. Discussed return to the ER care [facility] PCP if patient has high-grade fever to consider for secondary bacterial infection. No antibiotics would be prescribed on discharge. Patient to follow-up with PCP, pulmonology and cardiology within 1-2 weeks. Discharge discussed with: patient, nurse - Time Spent with Patient Total time spent providing and/or coordinating discharge services: Time spent: Greater than 30 minutes (38) - Discharge Medications Prescriptions: Continued Furosemide [Lasix] 40 mg PO DAILY HYDROcodone/Acet 10/325 mg [[place] 10-325 mg] 1 tab PO TID PRN PRN Reason: Pain Sildenafil Citrate [Revatio] 20 mg PO TID Budesonide/Formoterol 160/4.5 [Symbicort 160/4.5] 2 puff IH BIDR Venlafaxine HCl [Venlafaxine HCl ER] 150 mg PO DAILY [place]-3/Dha/Epa/Fish Oil [Fish Oil 1,000 mg Softgel] 1 cap PO DAILY Magnesium Oxide [Magnesium] 400 mg PO DAILY Insulin Glargine,Hum.rec.anlog [Lantus Solostar] 10 - 14 unit SQ HS Insulin ASPART [Novolog Flexpen] 6 - 25 unit SQ TIDAC Ergocalciferol (VITAMIN D2) [Vitamin D2] 50,000 unit PO FR Doxepin HCl 100 mg PO DAILY Aspirin [Lo-Dose Aspirin EC] 81 mg PO DAILY Albuterol Sulfate [Proair Hfa] 2 puff IH Q4H PRN PRN Reason: Wheezing Atorvastatin [Lipitor] 40 mg PO HS Furosemide [Lasix] 20 mg PO HS Lisinopril [Zestril] 40 mg PO DAILY Ranitidine HCl [Zantac] 300 mg PO DAILY Carvedilol 12.5 mg PO BID Potassium Chloride [Klor-Con 10] 10 meq PO BID cloNIDine HCl [CloNIDine HCl] 0.1 mg PO PRN PRN PRN Reason: Hypertension Home Medications: Albuterol Sulfate [Proair Hfa] 2 puff IH Q4H PRN 12/15/16 [History] Aspirin [Lo-Dose Aspirin EC] 81 mg PO DAILY 12/15/16 [History] Budesonide/Formoterol 160/4.5 [Symbicort 160/4.5] 2 puff IH BIDR 12/15/16 [History] Doxepin HCl 100 mg PO DAILY 12/15/16 [History] Ergocalciferol (VITAMIN D2) [Vitamin D2] 50,000 unit PO FR 12/15/16 [History] Furosemide [Lasix] 40 mg PO DAILY 12/15/16 [History] HYDROcodone/Acet 10/325 mg [[place] 10-325 mg] 1 tab PO TID PRN 12/15/16 [History] Insulin ASPART [Novolog Flexpen] 6 - 25 unit SQ TIDAC 12/15/16 [History] Insulin Glargine,Hum.rec.anlog [Lantus Solostar] 10 - 14 unit SQ HS 12/15/16 [History] Magnesium Oxide [Magnesium] 400 mg PO DAILY 12/15/16 [History] [place]-3/Dha/Epa/Fish Oil [Fish Oil 1,000 mg Softgel] 1 cap PO DAILY 12/15/16 [History] Sildenafil Citrate [Revatio] 20 mg PO TID 12/15/16 [History] Venlafaxine HCl [Venlafaxine HCl ER] 150 mg PO DAILY 12/15/16 [History] Atorvastatin [Lipitor] 40 mg PO HS 11/08/18 [History] Carvedilol 12.5 mg PO BID 11/08/18 [History] Furosemide [Lasix] 20 mg PO HS 11/08/18 [History] Lisinopril [Zestril] 40 mg PO DAILY 11/08/18 [History] Potassium Chloride [Klor-Con 10] 10 meq PO BID 11/08/18 [History] Ranitidine HCl [Zantac] 300 mg PO DAILY 11/08/18 [History] cloNIDine HCl [CloNIDine HCl] 0.1 mg PO PRN PRN 11/08/18 [History] Allergies/Adverse Reactions: Allergy/AdvReac Type Severity Reaction Status Date / Time Sulfa (Sulfonamide Allergy Rash Verified 11/08/18 08:53 Antibiotics) Cyclobenzaprine AdvReac Hallucinati Verified 11/08/18 08:53 [From Flexeril] ng promethazine [From Phenergan] AdvReac Hallucinati Verified 11/08/18 08:53 ng Tamoxifen AdvReac See Verified 11/08/18 08:53 Comments Date of admission: 11/08/18 09:31 Primary care physician: Duane Novak MD Discharging clinician: Vaibhav Zelaya - Constitutional Vitals: Temp Pulse Resp BP Pulse Ox 98.0 F 93 20 146/92 95 11/10/18 11:13 11/10/18 11:13 11/10/18 11:13 11/10/18 11:13 11/10/18 11:13 Exam: General: In no acute distress. Respiratory exam: CTAB. no accessory muscle use, rales, rhonchi, wheezes Cardiovascular exam: RRR, +S1, +S2. no murmur, gallop, rubs. GI/Abdominal exam: Non-tender, Non-distended, normal bowel sounds, soft, no peritoneal signs. Extremities exam: no pedal edema, pulses palpable in b/l lower extremities. no calf tenderness Neurological exam: CN II-XII intact, AO X3, no focal deficits. - Patient Status Disposition: Home, Self-Care Condition: Good - Discharge Instructions Follow Up With: Duane Novak MD [Primary Care Provider] - Forms: ED Satisfaction Letter, Work/School Release
== END 2018-11-10 13:53 | disposition home or self-care (01) ==
LOC: EMEROOARM 02:58 → 2SOUTHHOLD 02:58 → SUATTDRO 09:31 → 2SOUTHHOLD 09:37
PROVIDERS: ADMIT Student in an Organized Health Care Education/Training Program; ATTEND Internal Medicine